=== PATIENT | male | born 2005 | race Caucasian/White ===

== ENCOUNTER 2025-02-26 11:16 | Emergency (ER) | payer BC | END 2025-02-26 13:08 | disposition home or self-care (01) | LOC: VM.ED 11:16 | DX: S29.8XXA Other specified injuries of thorax, initial encounter (principal); S40.011A Contusion of right shoulder, initial encounter; W22.8XXA Striking against or struck by other objects, initial encounter | CPT/HCPCS: 71100; 73030; 99283; A9270 ==